=== PATIENT | male | born 1945 | race African-American/Black ===

== ENCOUNTER 2019-08-06 12:03 | Emergency (ER) | payer MEDICARE, MEDICAID ==
[~2019-08-06] VITALS: Ht 172.7 cm; Wt 76.0 kg
[~2019-08-06 12:03] MED LIST: AGGR PO; CARV25TA47 PO; CLON0.1T PO; DIPH25CA83 PO; DOCU100T PO; DOXA4TAB3 PO; DUONEB3 ML INH; FURO-152 PO; HYDR-4134 PO; Isosorbide PO; LIP40 PO; LOSA50TA41 PO; MONT10TA21 PO; SUCR1TAB PO
[2019-08-06 12:20] VITALS: BP 135/90
[2019-08-06] MEDS ORDERED: LIDOCAINE HCL 1% 20ML VIAL (Pyxis) INJ INFIL ONE (13:15)
[2019-08-06] MEDS ORDERED: BACITRACIN ZINC OINT UDPKT TOP ONE (14:00)
== END 2019-08-06 14:17 | disposition home or self-care (01) ==
LOC: ER 12:03
DX: L03.011 Cellulitis of right finger (principal); I25.2 Old myocardial infarction; I11.9 Hypertensive heart disease without heart failure; Z86.73 Personal history of transient ischemic attack (TIA), and cerebral infarction without residual deficits; Z88.1 Allergy status to other antibiotic agents; Z88.8 Allergy status to other drugs, medicaments and biological substances; Z79.899 Other long term (current) drug therapy
CPT/HCPCS: 10060; 99282; J3490